=== PATIENT | female | born 1940 | race Caucasian/White ===

== ENCOUNTER → 2016-12-25 | Outpatient (CLI) | payer MEDICARE, BC ==
--- NOTE | ~2016-12-25 | ENPV ---
Vascular Lower Arterial Plethysmography Procedure Demographics Patient Name SYD ALY Date of Study 12/25/2016 A Patient Number [id number] Gender Female Date of 1940 Age 76 Visit Number [id number] Height Accession Number [id number] Weight Room Number BSA BMI Referring kathie Uriah Hair MD Interpreting Chevy Gregorio MD Physician Physician Physician Ordering Physician adele Leach MD Mortgage Collector Chadwick Se[place], [facility] Conclusions Summary Right ankle/brachial index is 1.0 with no significant arterial disease at rest. Left ankle/brachial index is 0.83 with mild arterial disease at rest. With exercise the right ankle brachial index dropped to 0.79 suggestive of moderate disease. With exercise the left ankle brachial index dropped to 0.52 suggestive of severe disease. Right toe/brachial index is 0.58 and abnormal. Left toe/brachial index is 0.55 and abnormal. The patient complained of no claudication during the exercise. Vascular eval if patient is symptomatic. Procedure Type of Study: Extremities Arteries:Lower Arterial Plethysmography, Ankle/Brachial Indicies. Indications for Study:Claudication. Additional Indications:Bilateral lower extremity pain Appropriate Use Criteria:9 Patient Status:Routine. Study Location:[facility]. Technical Quality:Adequate visualization. - Preliminary reported to:Dr. Potter @1400. Velocities are measured in cm/s ; Diameters are measured in cm Pressures + ++--------+-----+----+--------+-----+ ! !!Right ! !Left! ! ! + ++--------+-----+----+--------+-----+ !Location !!Pressure!Ratio! !Pressure!Ratio! + ++--------+-----+----+--------+-----+ !Ankle PT !!119 !0.84 ! !97 !0.69 ! + ++--------+-----+----+--------+-----+ !DP !!141 !1 ! !117 !0.83 ! + ++--------+-----+----+--------+-----+ !Great Toe !!82 !0.58 ! !77 !0.55 ! + ++--------+-----+----+--------+-----+ - Brachial Pressure:Right: 138.Left:141. - DINORA:Right: 1.Left: 0.83. Plethysmographic Digit Evaluation +---------++--------+-----+ ++--------+-----+ + ! !!Right ! !Left !! ! ! ! +---------++--------+-----+ ++--------+-----+ + !Location !!Pressure!Ratio!PPG Wave Form !!Pressure!Ratio!PPG Wave Form ! +---------++--------+-----+ ++--------+-----+ + !Great Toe!!82 !0.58 ! !!77 !0.55 ! ! +---------++--------+-----+ ++--------+-----+ + Post Exercise Exercise Time: 3 min. + +----+ +---------+--------+ + + ! ! !Right ! !Left ! ! ! + +----+ +---------+--------+ + + !Location ! !Pressure !Ratio ! !Pressure !Ratio ! + +----+ +---------+--------+ + + !DP ! !109 !0.79 ! !72 !0.52 ! + +----+ +---------+--------+ + + - Brachial Pressure:Left:138. - DINORA:Right: 0.79.Left: 0.52. Signature dtt: CHRISTIANA UMANZOR: 12/25/16 1325 Physician Self Edit
== END | disposition disaster alternative care site (69) ==
LOC: GCAR 13:00
DX: M79.606 Pain in leg, unspecified (principal); E11.9 Type 2 diabetes mellitus without complications; I25.10 Atherosclerotic heart disease of native coronary artery without angina pectoris; I77.89 Other specified disorders of arteries and arterioles